=== PATIENT | female | born 1940 | race Caucasian/White ===

== ENCOUNTER 2020-09-13 15:43 | Outpatient (CLI) | payer OTHER, SELFPAY ==
--- NOTE | ~2020-09-13 | XR_ITS ---
EXAMINATION: XR lumbar spine min 4V DATE: 09/13/2020 16:30 INDICATION: Low back pain. TECHNIQUE: 5 views of lumbar spine were obtained. COMPARISON: Lumbar spine radiographs 09/16/2011 FINDINGS: There is 9 degrees levocurvature of thoracolumbar spine. There is a chronic compression fra cture of L1 with 2/5 loss of height. There is mildly decreased disc height at L2-L3 and L3-L4 and sev erely decreased at L4-L5 with endplate remodeling. There is severe facet joint osteoarthritis on the right from L2-L3 through L5-S1 and on the left from L3-L4 through L5-S1. IMPRESSION: 1. Severe lumbar spondylosis. Reviewed, dictated and finalized at location A.
--- NOTE | ~2020-09-13 | XR_ITS ---
XR hip LT min 3V w AP pelvis DATE: 09/13/2020 16:31 INDICATION: Low back pain. Right chronic pain. No injury. Left hip pain. TECHNIQUE: AP pelvis. AP, lateral and crosstable lateral views of left hip. COMPARISON: None FINDINGS: There is diffuse osteopenia. There is mild osteoarthritic spurring at the left hip joint as well as right hip joint consistent wit h mild bilateral hip osteoarthritis. The pubic symphysis and sacroiliac joints are intact. No pelvic fracture or bone destruction is detec juana. Prominent multilevel degenerative disc disease of the lumbar spine. IMPRESSION: Diffuse osteopenia Prominent multilevel degenerative disease of the lumbar spine Mild bilateral hip osteoarthritis Reviewed, dictated and finalized at location B.
== END 2020-09-13 15:44 | disposition home or self-care (01) ==
LOC: ANHIMG 15:47
PROVIDERS: PCP Family Medicine; Visit Provider Physician Assistant
DX: M54.5 Low back pain (principal); M47.816 Spondylosis without myelopathy or radiculopathy, lumbar region; M85.88 Other specified disorders of bone density and structure, other site; M51.36 Other intervertebral disc degeneration, lumbar region; M16.0 Bilateral primary osteoarthritis of hip
CPT/HCPCS: 72110; 73502

== ENCOUNTER 2020-12-10 12:45 | Outpatient (CLI) | payer OTHER, SELFPAY ==
--- NOTE | ~2020-12-10 | DEXA_ITS ---
Bone Density Report Name: Lana Olson Age: 80 Sex: Female Ethnicity: White Date of : 1940 Indication: osteopenia; monitoring treatment; parental hip fracture; height loss; prior fracture; rheumatoid arthritis; Referring Provider: Ryne Barnes Study: Bone densitometry was performed. Exam Date: December 10, 2020 Accession number: [id number] Bone Density: Region BMD T-score Z-score Classification AP Spine (L1-L4) 0.947 -0.9 1.7 Normal Femoral Neck (Left) 0.554 -2.7 -0.4 Osteoporosis Total Hip (Left) 0.728 -1.8 0.2 Osteopenia Total Hip Bilateral Avg 0.707 -1.9 0.1 Osteopenia Femoral Neck (Right) 0.578 -2.4 -0.2 Osteopenia Total Hip (Right) 0.684 -2.1 -0.1 Osteopenia World Health Organization criteria for BMD impression classify patients as: Normal (T-score at or above -1.0), Osteopenia (T-score between -1.0 and -2.5), or Osteoporosis (T-score at or below -2.5). 10-year Fracture Risk: FRAX not reported because: Some T-score for Spine Total or Hip Total or Femoral Neck at or below -2.5 Treated for osteoporosis Previous Exams: Region Exam Age BMD T-score BMD Change BMD Change Date g/cm2 vs Baseline vs Previous AP Spine(L1-L4) 12/10/2020 80 0.947 -0.9 0.081(9.3%)* 0.081(9.3%)* 12/29/2011 71 0.867 -1.6 Total Hip(Left) 12/10/2020 80 0.728 -1.8 -0.121(-14.2%) -0.121(-14.2%) 12/29/2011 71 0.849 -0.8 Total Hip(Right) 12/10/2020 80 0.684 -2.1 -0.203(-22.9%) -0.203(-22.9%) 12/29/2011 71 0.886 -0.5 *Denotes significance at 95% confidence level, LSC for AP Spine = 0.022 g/cm2, LSC for Total Hip = 0.027 g/cm2 Clinical Information Provided by Patient: Has had a low trauma fracture Parent has had a hip fracture Has rheumatoid arthritis Is being treated for osteoporosis Has used the following medications: Vitamin D, Calcium Patient maximum height was 64 Menopause Age: 63 No regular weight bearing exercise Onset of menses at age 12 Number of children 3 Impression: The patient has established osteoporosis, based on the Left Femoral Neck T-score and the existence of a prior fracture. The patient has risk factors, including: parental hip fracture, previous fracture. The BMD for the Total Hip(Left) decreased, changing by -14.2% since the last DXA exam. The BMD for the Total Hip(Right) decreased, changing by -22.9% since the last DXA exam. Discussion: SIGNIFICANT BONE LOSS OBSERVED. Adherence to therapy (including calcium and vitamin D intake
== END 2020-12-10 12:46 | disposition home or self-care (01) ==
PROVIDERS: PCP Family Medicine; Visit Provider Physician Assistant
DX: M85.89 Other specified disorders of bone density and structure, multiple sites (principal); M81.0 Age-related osteoporosis without current pathological fracture
CPT/HCPCS: 77080

== ENCOUNTER 2022-02-06 09:58 | Emergency (ER) | payer OTHER, SELFPAY ==
[2022-02-06 10:14] VITALS: BP 119/63; PULSE 68; RESP 16; TEMP 36.6; O2SAT 99
[2022-02-06 10:16] VITALS: BP 119/63; PULSE 68; RESP 16; TEMP 36.6; O2SAT 99
--- NOTE | 2022-02-06 10:33 | ED.HEATRA ---
HPI - Head Injury General Chief complaint: Head Injury Stated complaint: fall, head injury Time Seen by Provider: 02/06/22 10:10 Source: patient Mode of arrival: ambulatory Limitations: dementia and other (daughter with patient has medical history amd med list) History of Present Illness HPI Narrative: 11-year-old female who presents to [facility] accompanied by daughter with complaints tripping over a laundry basket at home this morning hit the edge of of the [place] chest causing laceration to her mid forehead area which is 2 cm in length with bleeding controlled. Patient does have history of dementia, daughter her to give history and has medication list, patient does not take any blood thinners. Daughter states that father was at home at time of fall and reports that patient did not have LOC. MD Complaint: head injury, fall and other ( laceration to mid forehead) Onset (ago): hour(s) (2hours prior to arrival) Mechanism of Injury: fall Loss of Consciousness: no Location of injury: other (mid lower forhead) Associated symptoms: denies other symptoms Related Data Home Medications Medication Instructions Recorded Confirmed bupropion HCl 300 mg 24 hr tablet, 300 mg PO QAM 07/12/19 02/06/22 extended release donepezil 23 mg tablet 23 mg PO DAILY 07/12/19 02/06/22 duloxetine 60 mg capsule,delayed 60 mg PO DAILY 07/12/19 02/06/22 release lorazepam 0.5 mg tablet 0.5 mg PO DAILY PRN Anxiety 07/12/19 02/06/22 memantine 10 mg tablet 10 mg PO BID 07/12/19 02/06/22 quetiapine 25 mg tablet 25 mg PO DAILY 07/12/19 02/06/22 Allergies Allergy/AdvReac Type Severity Reaction Status Date / Time citalopram Allergy Unknown Unknown Verified 02/06/22 10:13 erythromycin base Allergy Unknown Unknown Verified 02/06/22 10:13 iodine Allergy Unknown Unknown Verified 02/06/22 10:13 lisinopril Allergy Unknown Unknown Verified 02/06/22 10:13 Review of Systems Review of Systems: CONSTITUTIONAL: Denies fever, chills, or sweats. CARDIOVASCULAR: Denies chest pain, palpitations, or edema. RESPIRATORY: Denies cough or dyspnea. SKIN: Reports fall at home this am hitting head on cedar chest causing laceration to mid forehead MUSCULOSKELETAL: Denies musculoskeletal pain NEUROLOGIC: Denies numbness, or weakness. All systems reviewed & are unremarkable except as noted in HPI and below PMFSH Past Medical History Medical History (Updated 02/10/22 @ 15:47 by April Cordon NP) Dementia, unspecified, without behavioral disturbance Essential (primary) hypertension GERD (gastroesophageal reflux disease) H/O squamous cell carcinoma of skin Obesity Osteoarthritis of right knee Osteoporosis Surgical History Surgical History History of parathyroidectomy Family History Family History Mother Family history of osteoporosis Hypertension Family history of dementia Family history of kidney disease Family history of Alzheimer's disease Father Cerebrovascular accident Family history of lung cancer Hypertension Family history of malignant neoplasm Family history of coronary artery disease Family history of rheumatoid arthritis Acute myocardial infarction Sibling Family history of kidney disease Social History Social History Smoking status: Never smoker Second hand tobacco smoke exposure: No Alcohol intake: never Substance use: never Substance use type: does not use Gender identity (if verbalized by the patient): Female Sexual Orientation (if Verbalized by the Patient): Straight or Heterosexual Comments At time of signature, agree with nursing past medical, surgical, social and family history. There is no relevant family history pertinent to the presenting complaint Exam Narrative: GENERAL: Well-appearing, well-nourished, and in no acute distress. HEAD: Norm
[2022-02-06] MEDS: TETANUS,DIPHTHERIA,AC PERTUSSIS ADULT (0.5 ML) BOOSTRIX IM (11:15)
[2022-02-06] MEDS: LIDOCAINE HCL 1% LOCAL INJ 2 ML AMPUL 6 ML INFILTRATE (11:15)
== END 2022-02-06 11:24 | disposition home or self-care (01) ==
PROVIDERS: Emergency Provider Registered Nurse; PCP Family Medicine
DX: S01.81XA Laceration without foreign body of other part of head, initial encounter (principal); W18.09XA Striking against other object with subsequent fall, initial encounter; Z23 Encounter for immunization; F03.90 Unspecified dementia, unspecified severity, without behavioral disturbance, psychotic disturbance, mood disturbance, and anxiety; I10 Essential (primary) hypertension; K21.9 Gastro-esophageal reflux disease without esophagitis; M17.11 Unilateral primary osteoarthritis, right knee; M81.0 Age-related osteoporosis without current pathological fracture; Z85.828 Personal history of other malignant neoplasm of skin; Z90.89 Acquired absence of other organs
CPT/HCPCS: 12011; 90471; 90715; 99213; G0463

== ENCOUNTER 2023-03-04 16:25 | Outpatient (CLI) | payer OTHER, SELFPAY ==
[2023-03-04 17:12] LABS: Ammonia < 9 umol/L (9-30)
[2023-03-04 17:13] LABS: Appearance Urine Clear (Clear); Bacteria Urine Rare /hpf; Bilirubin Urine Negative (Negative); Color Urine Yellow (Yellow); Glucose Urine UA Negative (Negative); Ketones Urine Trace mg/dL (Negative); Leukocyte Esterase Ur 1+ LEU/UL (Negative); Nitrate Urine Negative (Negative); Non Pathogenic Casts 0-2; Protein Urine 3+ mg/dL (Negative); Specific Grav Ur 1.021 (1.001-1.035); Squamous Epithelial Cell Urine Moderate /hpf (Few)
[2023-03-04 17:15] LABS: Add Urine Microscopic? YES
[2023-03-04 19:13] LABS: Free T4 Free Thyroxine 1.41 ng/mL (0.78-2.19)
[2023-03-04 19:19] LABS: Alanine Aminotransferase 21 U/L (6-35); Albumin Level 3.9 g/dL (3.5-5.1); Alkaline Phosphatase 87 U/L (38-126); Anion Gap 5 mmol/L (8-16); Aspartate Amino Transferase 29 U/L (14-36); Bilirubin,Total 0.6 mg/dL (0.2-1.3); Blood Urea Nitrogen 15 mg/dL (7-17); Calcium 8.7 mg/dL (8.4-10.2); Carbon Dioxide 27 mmol/L (22-30); Chloride 106 mmol/L (98-107); Estimated Glomerular Filt Rate 60; Glucose 93 mg/dL (65-110); Potassium 4.3 mmol/L (3.4-5.0); Sodium 138 mmol/L (137-145)
[2023-03-04 20:34] LABS: Folic Acid > 20.0 ng/mL (2.76->20)
[2023-03-05 12:00] LABS: Rapid Plasma Reagin Non-Reactive (NonReactive)
[2023-03-06 12:11] LABS: Amphetamines NEGATIVE ng/mL (<500); Barbiturates NEGATIVE ng/mL (<300); Benzodiazepines POSITIVE ng/mL (<100); Cocaine Metabolite NEGATIVE ng/mL (<150); Marijuana Metabolite NEGATIVE ng/mL (<20); Methadone Metabolite NEGATIVE ng/mL (<100); Opiates NEGATIVE ng/mL (<100); Oxidant NEGATIVE mcg/mL (<200); pH 7.1 (4.5-9.0)
== END 2023-03-04 16:26 | disposition home or self-care (01) ==
LOC: ANHLAB 16:29
PROVIDERS: PCP Family Medicine
DX: R41.82 Altered mental status, unspecified (principal)
CPT/HCPCS: 36415; 80053; 80307; 81001; 82140; 82248; 82607; 82746; 84425; 84439; 84443; 86592; 87086

== ENCOUNTER 2023-05-19 10:15 | Outpatient (CLI) | payer OTHER, SELFPAY ==
[2023-05-19 11:23] LABS: Add Urine Microscopic? YES; Appearance Urine Clear (Clear); Bacteria Urine None Seen /hpf; Bilirubin Urine Negative (Negative); Blood Urine Negative (Negative); Color Urine Yellow (Yellow); Glucose Urine UA Negative (Negative); Ketones Urine Negative (Negative); Leukocyte Esterase Ur Negative LEU/UL (Negative); Nitrate Urine Negative (Negative); Non Pathogenic Casts 0-2; Protein Urine 2+ mg/dL (Negative); RBC Urine 0-2 /hpf (0-2); Specific Grav Ur 1.008 (1.001-1.035); Squamous Epithelial Cell Urine Few /hpf (Few); Urobilinogen Urine 0.2 mg/dL (<2.0); WBC Urine 0-5 /hpf (0-3); pH Urine 6.5 (5.0-9.0)
== END 2023-05-19 10:16 | disposition home or self-care (01) ==
PROVIDERS: PCP Family Medicine
DX: F03.911 Unspecified dementia, unspecified severity, with agitation (principal); F41.0 Panic disorder [episodic paroxysmal anxiety]
CPT/HCPCS: 81001